=== PATIENT | female | born 1980 | race Caucasian/White ===

== ENCOUNTER 2018-04-29 08:39 | Emergency (ER) | payer OTHER ==
[~2018-04-29] VITALS: Ht 172.7 cm; Wt 84.9 kg
[2018-04-29 08:53] VITALS: BP 138/93
[2018-04-29 10:15] VITALS: BP 128/81
== END 2018-04-29 10:15 | disposition home or self-care (01) ==
LOC: MED 08:39
DX: S20.20XA Contusion of thorax, unspecified, initial encounter (principal); S00.83XA Contusion of other part of head, initial encounter; Z88.0 Allergy status to penicillin; W50.0XXA Accidental hit or strike by another person, initial encounter; Y93.89 Activity, other specified; Y92.89 Other specified places as the place of occurrence of the external cause; Y99.8 Other external cause status
CPT/HCPCS: 71046; 81002; 81025; 99284